=== PATIENT | female | born 1940 | race Hispanic/Latino ===

== ENCOUNTER 2019-09-08 10:15 | Inpatient (IN) | payer OTHER ==
[~2019-09-08] VITALS: Ht 157.5 cm; Wt 90.7 kg
[~2019-09-08 10:15] MED LIST: ATENOLOL25 MG PO; ATORVASTATIN PO; FLUOXETINE PO; GABAPENTIN600 MG PO; TRAZODONE PO
[2019-09-08] MEDS ORDERED: HYDRALAZINE HCL 20 MG/ML VIAL IV ONE (11:30)
[2019-09-08 12:21] LABS: BASOPHILS % 0.4 % (0.0-1.0); EOSINOPHILS % 0.6 % (0.0-6.0); HEMATOCRIT 35.9 % (34.2-44.1); HEMOGLOBIN 11.6 g/dL (12.0-16.0); LYMPHOCYTES # (AUTO) 0.8 (1.0-3.2); LYMPHOCYTES % 12.4 % (18.0-39.1); MEAN CORPUSCULAR HEMOGLOBIN 28.2 pg (28-32); MEAN CORPUSCULAR HGB CONC 32.3 g/dL (31-35); MEAN CORPUSCULAR VOLUME 87.3 fL (81-99); MONOCYTES # (AUTO) 0.7 (0.2-0.8); NEUTROPHILS # (AUTO) 5.2 (2.1-6.9); NEUTROPHILS % 76.3 % (38.7-80.0); PLATELET COUNT 374 x10e3/uL (140-360); RED BLOOD COUNT 4.11 x10e6/uL (3.6-5.1); RED CELL DISTRIBUTION WIDTH 12.1 % (11.7-14.4)
[2019-09-08 12:30] LABS: INR 0.88; PROTHROMBIN TIME 12.4 seconds (11.9-14.5)
--- NOTE | 2019-09-08 12:34 | Diagnostic Imaging Report ---
Examination: CT head without contrast Clinical Indication: Dizziness. Headaches.. Technique: Transaxial noncontrast images from the skull base through the vertex were obtained. Sagittal and coronal reformatted images were done. Dose modulation, iterative reconstruction, and/or weight based adjustment of the mA/kV was utilized to reduce the radiation dose to as low as reasonably achievable. Comparison: None. Findings: Scalp: No abnormalities. Bones: Intact. No fractures. No blastic or lytic lesions. Brain sulci: Moderate volume loss for patient's age. Ventricles: No hydrocephalus. Extra-axial space: No abnormalities. Parenchyma: There are subtle patchy areas of low-attenuation within subcortical and periventricular white matter, nonspecific, but could represent microvascular ischemic disease. No masses, hemorrhage, or acute or chronic cortical based vascular insults. Suprasellar region: No abnormalities. Craniocervical junction: The foramen magnum is patent. No Chiari one malformation. Incidental findings: Atherosclerotic calcification of the cavernous and supraclinoid internal carotid arteries. Impression: 1. No acute intracranial finding. 2. Moderate volume loss and mild chronic microvascular ischemic change. Signed by: Dr. Yojana Rebolledo M.D. on 09/08/2019 12:31 PM
[2019-09-08 12:42] LABS: ALANINE AMINOTRANSFERASE 13 IU/L (0-55); ALBUMIN 3.7 g/dL (3.5-5.0); ALBUMIN/GLOBULIN RATIO 0.9 (0.8-2.0); ALKALINE PHOSPHATASE 78 IU/L (40-150); ANION GAP 15.4 mmol/L (8-16); BLOOD UREA NITROGEN 11 mg/dL (7-26); BUN/CREATININE RATIO 14 (6-25); CALCIUM 9.3 mg/dL (8.4-10.2); CARBON DIOXIDE 26 mmol/L (22-29); CHLORIDE 91 mmol/L (98-107); CREATINE KINASE 39 IU/L (29-168); CREATININE, SERUM 0.79 mg/dL (0.57-1.11); EST GLOMERULAR FILTRATION RATE > 60 ML/MIN (60-); GLUCOSE 106 mg/dL (74-118); POTASSIUM 4.4 mmol/L (3.5-5.1); SODIUM 128 mmol/L (136-145)
--- NOTE | 2019-09-08 12:52 | Diagnostic Imaging Report ---
Chest, portable AP view History: Hypertension Comparison: No comparisons available for review IMPRESSION: The right heart border is obscured by a moderate right pleural effusion with associated right basilar atelectasis/consolidation. A trace left pleural effusion is present. There is no pneumothorax. No acute osseous abnormalities. Signed by: Tano Huber MD on 09/08/2019 12:48 PM
[2019-09-08 12:54] LABS: CREATINE KINASE MB < 1.00 ng/mL (0-4.3)
[2019-09-08 13:02] LABS: THYROID STIMULATING HORMONE 1.447 uIU/mL (0.350-4.940)
[2019-09-08] MEDS ORDERED: SODIUM CHLORIDE 0.9% 1000ML 1,000 ML IV ONE (13:45)
[2019-09-08 13:51] LABS: FREE THYROXINE INDEX 2.3572 (1.4-3.8)
[2019-09-08 14:17] LABS: BILIRUBIN,URINE NEGATIVE (NEGATIVE); CLARITY,URINE CLEAR (CLEAR); COLOR,URINE YELLOW (YELLOW); KETONES,URINE NEGATIVE (NEGATIVE); LEUKOCYTE ESTERASE ,URINE NEGATIVE (NEGATIVE); NITRITE,URINE NEGATIVE (NEGATIVE); PROTEIN,URINE DIPSTICK 2+ (NEGATIVE); URINE UROBILINOGEN 0.2 mg/dL (0.2 - 1)
--- OUTSIDE RECORDS SUMMARY | 2019-09-08 14:35 | XMS REPORT ---
Author Author [facility] Address Unknown Phone Unavailable Care Team Providers Care Grinder Set Up Operator Universal Name Role Phone Sheree RIVER Unavailable Unavailable Problems This patient has no known problems. Allergies, Adverse Reactions, Alerts This patient has no known allergies or adverse reactions. Medications This patient has no known medications. Results Test Description Test Time Test Comments Text Results Atomic Results Result Comments CHEST SINGLE (PORTABLE) 2019-09-08 12:47:00 [place] [address] Patient Name: TOYIN CARDONA MR #: [id number] : 1940 Age/Sex: 79/F Req #: [id number] Adm Physician: Ordered by: JHONNY CARR BRAKE LINING MAKER Report #: [id number] Location: ER Room/Bed: Procedure: [id number] DX/CHEST SINGLE (PORTABLE) Exam Date: Exam Time: REPORT STATUS: Signed Chest, portable AP view History: Hypertension Dennis rison: No comparisons available for review IMPRESSION: The right heart border is obscured by a moderate right pleural effusion with associated right basilar atelectasis/consolidation. A trace left pleural effusion is present. There is no pneumothorax. No acute osseous abnormalities. Signed by: Tano Stone MD on 09/08/2019 12:48 PM Dictated By: TANO STONE MD [id number] Transcribed By: PANKAJ on 09/08/191247 COPY TO: JHONNY CARR NP CT BRAIN WO 2019-09-08 12:30:00 [place] [address] Patient Name: TOYIN CARDONA MR #: [id number] : 1940 Age/Sex: 79/F Req #: [id number] Adm Physician: Ordered by: JHONNY CARR BRAKE LINING MAKER Report #: [id number] Location: ER Room/Bed: Procedure: [id number] CT/CT BRAIN WO Exam Date: Exam Time: REPORT STATUS: Signed Examination: CT head without contrast Clinical Indication: Dizziness. Hea daches.. Technique: Transaxial noncontrast images from the skull base through the vertex were obtained. Sagittal and coronal reformatted images were done. Dose modulation, iterative reconstruction, and/or weight based adjustment of the mA/kV was utilized to reduce the radiation dose to as low as reasonably achievable. Comparison: None. Findings: Scalp: No abnormalities. Bones: Intact. No fractures. No blastic or lytic lesions. Brain sulci: Moderate volume loss for patient's age. Ventricles: No hydrocephalus. Extra-axial space: No abnormalities. Parenchyma: There are subtle patchy areas of low-attenuation within subcortical and periventricular white matter, nonspecific, but could represent microvascular ischemic disease. No masses, hemorrhage, or acute or chronic cortical based vascular insults. Suprasellar region: No abnormalities. Craniocervical junction: The foramen magnum is patent. No Chiari one malformation. Incidental findings: Atherosclerotic calcification of the cavernous and supraclinoid internal carotid arteries. Impression: 1. No acute intracranial finding. 2. Moderate volume loss and mild chronic microvascular ischemic change. Signed by: Dr. Yojana Rebolledo M.D. on 09/08/2019 12:31 PM Dictated By: YOJANA BALLESTEROS MD [id number] Transcribed By: PANKAJ on 09/08/19 1231 COPY TO: JHONNY CARR NP
[2019-09-08 14:38] LABS: EPITHELIAL CELLS,URINE FEW /LPF; WBC,URINE (MAN) 0-5 /HPF (0-5)
[2019-09-08] MEDS: CEFTRIAXONE SOD 1 GM/NS 50 ML 50 ML IV SCH (15:05)
[2019-09-08] MEDS: AZITHROMYCIN 500MG/NS 250 ML 250 ML IV SCH (15:30)
--- NOTE | 2019-09-08 17:00 | NUR ---
PT CAME FROM ER AT 1730 THERE IS A STAT TO THORACENTESIS FOR RIGHT PLEURAL EFFUSION THE ER NOT CARRID OUT THE ORDER AND SHE DID NOT TELL WHILE REPORT Addendum: 09/08/19 at 1946 by Kamila Briggs RN TIME 1900
--- NOTE | 2019-09-08 17:06 | NUR ---
4th attempt report. first left on hold then hung up on then hung up on now on hold...
--- NOTE | 2019-09-08 17:30 | NUR ---
RCD PT FROM ER BY BED PT IS ALERT AND ORIENTED VITALS CHECKED PT RESTING ON BED ADMISSION ASSESSMENT AND HISTORY DONE IV PATENT ANTIBIOTICS STARTED FAMILY AT BED SIDE INSTRUCTED THE PT AND FAMILY REGARDING HOSPITAL POLICY AND ROUTINE BED LOW AND LOCKED CALL LIGHT IN REACH
[2019-09-08 17:54] VITALS: BP 183/81
[2019-09-08 17:55] VITALS: BP 181/81
--- NOTE | 2019-09-08 19:09 | NUR ---
PT RESTING ON BED BED SIDE REPORT GIVEN TO AYESHA NURSE Addendum: 09/08/19 at 1952 by Kamila Briggs RN WRONG INFORMATION REPORT GIVEN AT 1944
--- NOTE | 2019-09-08 19:15 | NUR ---
NOTIFIED THE QUALITY ASSURANCE TEST PROGRAM MANAGER REGARDING THE STAT IR CONSULT SHE TALKED TO DR CAUSEY GOT THE ORDER TO STAT CT AND TALK DR MCDUFFIE ,TALKED DR MCDUFFIE HE AGREED CHEST CT ,HE SAID HE IS COMING TO SEE THE PATIENT TO EVALUATE THE PT NEED THE THORACENTESES TODAY OR TOMORROW
--- NOTE | 2019-09-08 19:45 | NUR ---
PT RESTING ON BED BED SIDE REPORT GIVEN TO ONCOMING NURSE
[2019-09-08 20:00] VITALS: BP 193/81
--- NOTE | 2019-09-08 20:53 | Diagnostic Imaging Report ---
EXAM: CT Chest WITHOUT contrast INDICATION: Right pleural effusion COMPARISON: Chest radiograph 09/08/2019 TECHNIQUE: Chest was scanned utilizing a multidetector helical scanner from the lung apex through the level of the adrenal glands wi thout administration of IV contrast. Absence of intravenous contrast decreases sensitivity for detection of lymphadenopathy and vascular pathology. Coronal and sagittal reformations were obtained. Routine protocol was performed. IV CONTRAST: None COMPLICATIONS: None RADIATION DOSE: Total DLP: 554 mGy*cm Estimated effective dose: (DLP x 0.014 x size factor) mSv CTDIvol has been reviewed. It is below the limits set by the Radiation Protocol Committee (RPC). Dose modulation, iterative reconstruction, and/or weight based adjustment of the mA/kV was utilized to reduce the radiation dose to as low as reasonably achievable. FINDINGS: LINES/ TUBES: None. LUNGS AND AIRWAYS: Subtle interstitial thickening in the right upper lobe. Right lower lobe is collapsed, atelectasis in the right middle lobe. Airways are normal. PLEURA: Large right pleural effusion, density measures slightly greater than simple fluid. HEART AND MEDIASTINUM: The thyroid gland is normal. No mediastinal, hilar or axillary lymphadenopathy. The heart is normal in size. Small pericardial fluid. Subtle nodularity of the subpulmonic and inferior mediastinal fat. Calcifications of the aorta and major branches including the coronary arteries. UPPER ABDOMEN: Soft tissue nodularity along the omentum, primarily along the left omentum and descending colon where there is a 5.3 cm soft tissue conglomerate. Small volume ascites, measures greater than simple fluid density. A 4.8 cm right renal cyst with focal mural calcification. BONES: The visualized bony thorax is within normal limits. SOFT TISSUES: Unremarkable. IMPRESSION: 1. Abdominal findings concerning for peritoneal carcinomatosis and malignant ascites. Recommend abdominal CT with contrast for further evaluation. 2. Large right pleural effusion measures slightly greater than fluid density, with atelectasis of the right lower lung and partial atelectasis of the right middle lobe. Given the abdominal findings, the right pleural effusion may also be malignant. 3. Subtle interstitial thickening in the right upper lobe is suspected due to underaeration given large right pleural effusion. Signed by: Mario Bonner DO on 09/08/2019 8:50 PM
[2019-09-08 21:10] VITALS: BP 193/81
[2019-09-08] MEDS: HYDRALAZINE HCL 20 MG/ML VIAL IV PRN (21:10)
[2019-09-08] MEDS: ONDANSETRON HCL INJ 2MG/ML 2ML 2 MG/ML VIAL IV PRN (21:10)
--- NOTE | 2019-09-08 21:10 | NUR ---
PATIENT IS IN STABLE CONDITION, NO SIGNS OF DISTRESS NOTED. IV FLUIDS ARE RUNNING AT ORDERED RATE AND PATIENT AWARE OF NPO AFTER MIDNIGHT FOR HER PROCEDURE. BED IS IN LOW POSITION, SIDE RAILS ARE UP, CALL LIGHT WITHIN EASY REACH, WILL CONTINUE TO MONITOR.
[2019-09-08 21:20] LABS: CREATINE KINASE MB < 1.00 ng/mL (0-4.3)
[2019-09-08 21:41] LABS: CREATINE KINASE 32 IU/L (29-168)
[2019-09-09] VITALS (8 sets, daily range): BP systolic 126–179; BP diastolic 59–77
--- NOTE | 2019-09-09 04:03 | Consultation ---
DATE OF CONSULTATION: Pulmonary Consultation. REASON FOR CONSULT: Right-sided pleural effusion. HISTORY OF PRESENT ILLNESS: Ms. Witt is an 79-year-old female, presented to the emergency room with shortness of breath and pleuritic chest pain going on for last few days, progressively getting worse, it is a 6/10 in intensity in the pain on the right side along with shortness of breath. Shortness of breath was worse on exertion. The patient also reports that she felt weak and lousy. She saw Dr. Rubio and x-ray was done at that time, which was told to her it is normal in the emergency room. She had a chest x-ray, which showed right-sided pleural effusion. REVIEW OF SYSTEMS: GENERAL: Denies any fever or chills. HEAD: Denies any head trauma. ENT: Denies any earache. CARDIOVASCULAR SYSTEM: Denies any chest pain. RESPIRATORY: Shortness of breath. The rest of the review of systems are negative except as in HPI. PAST MEDICAL HISTORY: Osteoporosis and neuropathy. FAMILY AND SOCIAL HISTORY: She does not smoke. Does not drink. PHYSICAL EXAMINATION: VITAL SIGNS: T-max of 100.1, pulse of 65, blood pressure 157/69, and respiratory rate of 18. HEENT: Head atraumatic and normocephalic. NECK: Supple. CHEST: Decreased air entry on the right side. HEART: S1, S2 audible. ABDOMEN: Soft. EXTREMITIES: No pedal edema. NEUROLOGIC: Awake and alert. LABS: Chest x-ray films reviewed. Labs reviewed. ASSESSMENT AND PLAN: An 79-year-old female with right-sided pleural effusion, shortness of breath, low-grade fever, possible pneumonia with parapneumonic effusion. Agree with CT chest. We will follow the results and review the films, thoracentesis in a.m. MD ADRIENNE Brown/TANNA /[id number]
[2019-09-09 05:47] LABS: BASOPHILS % 0.3 % (0.0-1.0); EOSINOPHILS # (AUTO) 0.1 (0.0-0.4); HEMATOCRIT 30.8 % (34.2-44.1); LYMPHOCYTES % 16.2 % (18.0-39.1); MEAN CORPUSCULAR HEMOGLOBIN 28.1 pg (28-32); MEAN CORPUSCULAR HGB CONC 32.5 g/dL (31-35); MEAN CORPUSCULAR VOLUME 86.5 fL (81-99); MONOCYTES # (AUTO) 0.6 (0.2-0.8); NEUTROPHILS # (AUTO) 4.6 (2.1-6.9); NEUTROPHILS % 71.2 % (38.7-80.0); PLATELET COUNT 323 x10e3/uL (140-360); RED BLOOD COUNT 3.56 x10e6/uL (3.6-5.1); RED CELL DISTRIBUTION WIDTH 12.2 % (11.7-14.4)
[2019-09-09 06:06] LABS: ALANINE AMINOTRANSFERASE 9 IU/L (0-55); ALBUMIN 3.1 g/dL (3.5-5.0); ALKALINE PHOSPHATASE 63 IU/L (40-150); ANION GAP 10.9 mmol/L (8-16); BLOOD UREA NITROGEN 12 mg/dL (7-26); BUN/CREATININE RATIO 14 (6-25); CARBON DIOXIDE 24 mmol/L (22-29); CHLORIDE 94 mmol/L (98-107); CHOL/HDL RATIO 2.7 (3.0-3.6); CHOLESTEROL 89 MD/DL (0-199); CREATININE, SERUM 0.83 mg/dL (0.57-1.11); EST GLOMERULAR FILTRATION RATE > 60 ML/MIN (60-); GLUCOSE 103 mg/dL (74-118); HDL CHOLESTEROL 33 MG/DL (40-60); LDL CHOLESTEROL 45 MG/DL (60-130); POTASSIUM 3.9 mmol/L (3.5-5.1); SODIUM 125 mmol/L (136-145); TRIGLYCERIDES 56 MG/DL (0-149)
[2019-09-09 07:31] LABS: CREATINE KINASE 23 IU/L (29-168)
--- NOTE | 2019-09-09 09:05 | NUR ---
Patient resting in bed, denies any pain, no distress, daughter at bed side
[2019-09-09] MEDS: AZITHROMYCIN 500MG/NS 250 ML 250 ML IV SCH (09:07)
[2019-09-09 09:59] LABS: CREATINE KINASE MB < 1.00 ng/mL (0-4.3)
[2019-09-09] MEDS: HYDRALAZINE HCL 20 MG/ML VIAL IV PRN ×2 (11:57→21:04)
--- NOTE | 2019-09-09 12:23 | Diagnostic Imaging Report ---
CT of the abdomen and pelvis History: Abnormal findings on chest CT. Concern for peritoneal carcinomatosis Comparison: Chest CT dated 09/08/2019. Technique: Multidetector CT scanning of the abdomen and pelvis was performed from the level of the lung bases to the inferior pubic ramus with IV contrast. DOSE REDUCTION: The examination was performed according to departmental dose-optimization program which includes automated exposure control, adjustment of the mA and/or kV according to patient size and/or use of iterative reconstruction technique. Discussion: There is a large right pleural effusion with associated compressive atelectasis of right lower lobe. A trace left pleural effusion is present. No focal hepatic lesions are identified. The gallbladder is present nondistended. No radiopaque gallstones are identified. The spleen is within normal limits. The pancreas is homogeneous in attenuation. There is no pancreatic ductal dilatation. The bilateral adrenal glands are unremarkable. The kidneys are normal in size and enhance symmetrically. Bilateral renal cysts are noted. The largest cyst on the right arises from the mid to upper pole and measures 4.8 cm in diameter. The largest cyst on the left arises from the upper pole and measures 1.9 cm in diameter. The stomach, small, and large bowel are nondistended. There is no evidence of obstruction. There is a small amount of abdominal ascites. Multiple omental masses compatible with peritoneal carcinomatosis are identified. In the left upper quadrant there is a conglomeration of soft tissue nodularity which measures approximately 6 cm in diameter and the left lower quadrant there is an omental mass which measures approximately 13.5 cm x 3 cm. Scattered other omental masses are also identified for instance in the right paracolic gutter there is a 1.4 cm diameter mass and along the greater curvature of the stomach there is a 1.5 cm diameter mass. Within the pelvis there is an approximately 9.3 x 8.3 cm mixed cystic and solid mass which is possibly ovarian or uterine in origin. The urinary bladder is within normal limits. The abdominal aorta is of normal course and caliber. Degenerative changes of the thoracolumbar spine are identified. No acute osseous abnormalities. IMPRESSION: 1. Diffuse peritoneal/omental carcinomatosis. 2. Mixed cystic and solid pelvic mass likely uterine or ovarian in origin. 3. Large right pleural effusion. Trace left pleural effusion. 4. Small amount of abdominal ascites. Signed by: Tano Huber MD on 09/09/2019 12:20 PM
--- NOTE | 2019-09-09 14:01 | NUR ---
Patient off the unit for Thoracentesis, Notified ultrasound to send the fluid to Pathology as per Dr Yañez, lab papers sent with chart
[2019-09-09] MEDS ORDERED: IOPAMIDOL 370 MG/ML 200 ML INFUS..BTL INJ ONE (14:31)
[2019-09-09] MEDS ORDERED: SODIUM CHLORIDE 0.9% 50ML 50 ML ONE (14:31)
--- NOTE | 2019-09-09 14:42 | Diagnostic Imaging Report ---
Chest, portable AP view History: Status post right thoracentesis Comparison: 09/08/2019 IMPRESSION: There is no postprocedural pneumothorax. There has been a significant interval reduction in the amount of right pleural fluid only a small residual pleural effusion remaining. The left lung is grossly clear. The heart is within normal limits of size. No acute osseous abnormalities. Signed by: Tano Huber MD on 09/09/2019 2:39 PM
--- NOTE | 2019-09-09 14:57 | Diagnostic Imaging Report ---
Ultrasound guided right thoracentesis, 09/09/2019. Clinical History: Right pleural effusion. Modality: Ultrasound. Sedation: None. Community Planning Technician: Tano Huber MD. End Trimmer: None. Estimated Blood Loss: 1cc Specimen: 1200 cc of dark yellow fluid. Technique: Informed consent was obtained. The risks of pain, bleeding, infection, lung collapse/pneumothorax, injury to adjacent structures, and adverse medication reactions were discussed with the patient. The patient's right hemithorax was scanned from the back, with the patient in a sitting position. After the largest fluid pocket area was marked, the skin was prepped and draped in the usual sterile manner. The area was anesthetized with 1% lidocaine, a 5 F one-step catheter was advanced into the pleural space under ultrasound guidance. After completion of drainage, the catheter was removed. There was no evidence of immediate complication. Post procedure chest x-ray demonstrates no evidence of pneumothorax. Impression: Successful and uncomplicated ultrasound guided right thoracentesis. Signed by: Tano Huber MD on 09/09/2019 2:54 PM
[2019-09-09 17:14] LABS: LYMPHOCYTES,BODY FLUID 78 %; MONO/MACROPHG,BODY FLUID 11 %
[2019-09-09 17:15] LABS: OTHER CELLS,BODY FLUID 11 %
--- NOTE | 2019-09-09 17:18 | History and Physical ---
PRIMARY CARE PHYSICIAN: Dr. Chester Rubio. ASSISTED LIVING DIRECTOR: Dr. Marialuisa Yañez. CHIEF COMPLAINT: Increasing shortness of breath, generalized weakness, finding of low potassium and pleural effusion with possible pneumonia in the emergency room. HISTORY OF PRESENT ILLNESS: The patient is an 79-year-old female complained of increasing weakness. The patient also complained of increase in shortness of breath when she ambulates. In the emergency room, the patient found to have right pleural effusion. She also has a possible malignancy in the abdomen. The patient is admitted for further evaluation. PAST MEDICAL HISTORY: Hypertension, dyslipidemia, depression, and anxiety disorder. PAST SURGICAL HISTORY: Partial hysterectomy. SOCIAL HISTORY: The patient does not smoke or use alcohol. No regular drug use. ALLERGIES: NO KNOWN ALLERGIES. HOME MEDICATIONS: Atenolol, gabapentin, Lipitor, Prozac, and trazodone. PHYSICAL EXAMINATION: VITAL SIGNS: Temperature is 98, blood pressure 152/68, pulse rate 71, and respirations 18. GENERAL: The patient seems weak, but is not in any distress. HEENT: Normocephalic and atraumatic. Anicteric. NECK: Supple grossly. PULMONARY: Diminished breath sounds bilaterally, worse on the right compared to left. CARDIOVASCULAR: Regular rate and rhythm. ABDOMEN: Soft, nontender, non-distention. EXTREMITIES: No cyanosis or edema. NEUROLOGIC: No focal deficit. LABORATORY DATA: WBC is 6.8, hemoglobin 11.6, hematocrit 36, and platelet is 374. Coagulation is normal. Chemistry; sodium 125, potassium 3.9, chloride 94, bicarb 24, BUN 12, creatinine 0.8, and glucose is 103. Urinalysis unremarkable. Serology influenza A and B negative. IMAGING TESTS: The patient had a CT of the chest done. The patient had abdominal findings concerning for peritoneal carcinomatosis and malignant ascites. Recommendation of abdominal CT with contrast. She had a large right pleural effusion, slightly greater than fluid density. There is atelectasis as well. IMPRESSION: 1. Right pleural effusion. 2. Abdominal ascites with possible carcinomatosis. PLAN: Abdominal and pelvic CT with contrast. Continue with right pleural effusion thoracentesis. We will consult the patient with Dr. Mulugeta Hall. The patient has been seen by Dr. Marialuisa Yañez already. We will watch the patient workup and pending on further evaluation of findings. MD SANDER Quinn /[id number]
[2019-09-09 17:25] LABS: RBC,BODY FLUID 536 cells/uL; WBC,BODY FLUID 184 cells/uL
[2019-09-09 17:26] LABS: BODY FLUID APPEARANCE SL.CLOUDY; BODY FLUID COLOR STRAW; BODY FLUID TYPE PLEURAL
[2019-09-09] MEDS: CEFTRIAXONE SOD 1 GM/NS 50 ML 50 ML IV SCH (17:33)
[2019-09-09] MEDS: ONDANSETRON HCL INJ 2MG/ML 2ML 2 MG/ML VIAL IV PRN (17:51)
--- NOTE | 2019-09-09 19:05 | NUR ---
Received report from day nurse. patient is resting comfortably in the bed. bed is in the lowest position and call calix is within reach. will continue to monitor patient.
[2019-09-10] VITALS (9 sets, daily range): BP systolic 135–174; BP diastolic 59–79
--- NOTE | 2019-09-10 00:15 | NUR ---
Received report from Vinicius CAPONE, will continue to monitor patient
--- NOTE | 2019-09-10 03:31 | Consultation ---
DATE OF CONSULTATION: 09/09/2019 GI Consult Note. REFERRING PHYSICIAN: Gigi Rahman MD. PRIMARY CARE PHYSICIAN: Chester Rubio MD. REASON FOR CONSULT: Malignant ascites, peritoneal carcinomatosis. HISTORY OF PRESENTING ILLNESS: An 79-year-old very pleasant female, who got admitted with worsening of shortness of breath and progressive abdominal distention for the last couple of weeks. She was also noted to be quite lightheaded at home. She checked her blood pressure, it was elevated. She decided to come to the emergency room. Here, her blood pressure was 173/77, subsequently it came down to 132/60. Denies any associated chest pain or palpitation. CT chest initially showed right pleural effusion and partial abdominal section of the CT chest was suggestive of possible peritoneal carcinomatosis. Subsequently, she has had a CT of the abdomen and pelvis with contrast with IV contrast. This showed diffuse peritoneal/omental carcinomatosis and mixed cystic and solid pelvic mass likely originating from ovarian or uterus. On further questioning, she stated that she has had a colonoscopy three years ago somewhere in [place]. The patient does not remember the finding. However, she states that no polyp or any mass was found. The patient denies any GI symptoms except that she has a chronic constipation. REVIEW OF SYSTEMS: Twelve point system reviewed, symptomatology is limited as per HPI. PAST MEDICAL HISTORY: Hypertension, dyslipidemia, depression, anxiety. PAST SURGICAL HISTORY: Partial hysterectomy. FAMILY HISTORY: Negative for any GI or SPED TEACHER malignancies. SOCIAL HISTORY: No smoking, alcohol, or any illicit drug use. ALLERGIES: NONE. HOME MEDICATION: Atenolol, gabapentin, atorvastatin, fluoxetine, trazodone. INPATIENT MEDICATIONS: Reviewed as per MAR, she is on intravenous ceftriaxone, azithromycin, hydralazine, and Zofran. PHYSICAL EXAMINATION: VITAL SIGNS: Temperature 99.3, pulse 76, respiration 18, blood pressure 179/77 to 132/60, oxygen saturation 97% on room air. GENERAL: Not in any acute distress. HEENT: Oral mucosa is moist. Gross pallor, anicteric sclerae. CVS: S1, S2 regular. LUNGS: Decreased breath sounds at the right side, left lung is relatively clear. No rales or rhonchi. ABDOMEN: Distended lower quadrant tenderness on deep palpation without rebound, rigidity, or guarding. No digitally palpable mass or any hernia. Bowel sounds present. EXTREMITIES: Warm, trace bilateral leg edema. LABORATORY DATA: WBC 6.42, hemoglobin down to 10.0 from 11.6, hematocrit 30.8, MCV 86.5, and platelet count 323. Sodium 125, potassium 3.9, chloride 94, bicarb 24, BUN 12, creatinine 0.83, glucose 103. Liver enzymes showed a total bilirubin 0.4, AST 25, ALT 9, and alkaline phosphatase 63. Liver enzymes showed albumin 3.1, AST 25, ALT 9, total bilirubin 0.4, and CT of the abdomen and pelvis with IV contrast showed. 1. Diffuse peritoneal/omental carcinomatosis. 2. Mixed cystic and solid pelvic mass, likely uterine or ovarian in origin. 3. Large right pleural effusion. Trace left pleural effusion. 4. Small amount of abdominal ascites. IMPRESSION: Peritoneal carcinomatosis likely due to underlying ovarian cancer. Pleural effusion also seems to be malignant. PLAN: I do not suspect any colonic mass given absence of any GI symptoms. The patient is not even significantly anemic. She has a chronic constipation. She is not having any acute constipation. Oncology consult. Bowel regimen for constipation. Correct hyponatremia. I thank Dr. Rahman for allowing me to participate in the care of this patient. John Betancourt MD SA/TANNA /[id number]
[2019-09-10 05:42] LABS: BASOPHILS % 0.5 % (0.0-1.0); EOSINOPHILS # (AUTO) 0.1 (0.0-0.4); EOSINOPHILS % 2.2 % (0.0-6.0); HEMATOCRIT 31.2 % (34.2-44.1); HEMOGLOBIN 10.1 g/dL (12.0-16.0); LYMPHOCYTES # (AUTO) 0.9 (1.0-3.2); LYMPHOCYTES % 14.1 % (18.0-39.1); MEAN CORPUSCULAR HEMOGLOBIN 28.1 pg (28-32); MEAN CORPUSCULAR HGB CONC 32.4 g/dL (31-35); MEAN CORPUSCULAR VOLUME 86.9 fL (81-99); MONOCYTES # (AUTO) 0.7 (0.2-0.8); MONOCYTES % 11.2 % (4.4-11.3); NEUTROPHILS # (AUTO) 4.5 (2.1-6.9); NEUTROPHILS % 71.7 % (38.7-80.0); PLATELET COUNT 362 x10e3/uL (140-360); RED BLOOD COUNT 3.59 x10e6/uL (3.6-5.1); RED CELL DISTRIBUTION WIDTH 12.5 % (11.7-14.4)
[2019-09-10 05:57] LABS: BLOOD UREA NITROGEN 12 mg/dL (7-26); BUN/CREATININE RATIO 14 (6-25); CARBON DIOXIDE 23 mmol/L (22-29); CHLORIDE 94 mmol/L (98-107); CREATININE, SERUM 0.88 mg/dL (0.57-1.11); EST GLOMERULAR FILTRATION RATE > 60 ML/MIN (60-); GLUCOSE 109 mg/dL (74-118); SODIUM 127 mmol/L (136-145)
[2019-09-10 06:38] LABS: FERRITIN 295.74 ng/mL (4.63-204.00)
[2019-09-10] MEDS: AZITHROMYCIN 500MG/NS 250 ML 250 ML IV SCH (10:32)
[2019-09-10] MEDS ORDERED: SODIUM CHLORIDE 0.9% 250ML 250 ML ONE (10:38)
[2019-09-10] MEDS: CEFTRIAXONE SOD 1 GM/NS 50 ML 50 ML IV SCH (15:51)
[2019-09-10] MEDS ORDERED: GABAPENTIN 300 MG CAP PO ONE (20:00)
[2019-09-10] MEDS: ATORVASTATIN 20 MG TAB PO SCH (20:29)
[2019-09-10] MEDS: POLYETHYLENE GLYCOL 3350 17 GM PACK PO PRN (20:29)
[2019-09-10] MEDS ORDERED: TRAZODONE HCL 50 MG TAB PO SCH (21:00)
[2019-09-11] VITALS (8 sets, daily range): BP systolic 137–180; BP diastolic 63–77
[2019-09-11] MEDS: ATENOLOL 50 MG TAB PO SCH (08:17)
[2019-09-11] MEDS: AZITHROMYCIN 500MG/NS 250 ML 250 ML IV SCH (08:17)
[2019-09-11] MEDS: FLUOXETINE HCL 20 MG CAP PO SCH (08:17)
[2019-09-11] MEDS ORDERED: GABAPENTIN 300 MG CAP PO SCH (09:00)
[2019-09-11] MEDS ORDERED: NIFEDIPINE CR 30 MG TAB PO ONE (11:00)
[2019-09-11] MEDS: POLYETHYLENE GLYCOL 3350 17 GM PACK PO PRN (12:26)
[2019-09-11] MEDS: GABAPENTIN 100 MG CAP PO SCH ×2 (15:53→21:00)
[2019-09-11] MEDS: CEFTRIAXONE SOD 1 GM/NS 50 ML 50 ML IV SCH (15:53)
[2019-09-11] MEDS: DOXYCYCLINE HYCLATE TABLET 100 MG TAB PO SCH (16:30)
[2019-09-11] MEDS: HYDRALAZINE HCL 20 MG/ML VIAL IV PRN (16:30)
[2019-09-11] MEDS ORDERED: CITRATE OF MAGNESIA 300ML BOTTLE PO ONE (18:45)
--- NOTE | 2019-09-11 18:55 | NUR ---
Dr. Hall ordered Mag Cit, Pt no BM x3 days. IR consult for biopsy to omental mass.
--- NOTE | 2019-09-11 19:05 | NUR ---
Bedside rounds completed with morning nurse. Pt alert and orient to name, lying in bed HOB 45 degrees. Denies pain at this time. Family at bedside. Call light within reach. Will continue to monitor.
--- NOTE | 2019-09-11 20:45 | NUR ---
Dr. Betancourt ordered senna 2 tabs at HS tomorrow and Miralax 17gm in AM.
[2019-09-11] MEDS: ATORVASTATIN 20 MG TAB PO SCH (21:00)
[2019-09-11] MEDS: QUETIAPINE FUMARATE 25 MG TAB PO SCH (21:00)
[2019-09-11] MEDS: AMLODIPINE BESYLATE 5 MG TAB PO SCH (21:00)
--- NOTE | 2019-09-11 23:55 | Progress Note ---
DATE: 09/11/2019 SUBJECTIVE: The patient reports no abdominal pain. Tolerating oral diet. Has not had any bowel movement today. She is complaining of some constipation. REVIEW OF SYSTEMS: GENERAL: No fever or chills. CVS: No chest pain or palpitations. RESPIRATORY: No cough or expectoration. MEDICATIONS: Doxycycline 100 mg twice daily, hydralazine 10 mg q.4 hours as needed, gabapentin 200 mg three times daily, ceftriaxone 1 mg daily, MiraLAX 17 g daily as needed, fluoxetine 20 mg daily, atenolol 50 mg daily, atorvastatin 20 mg daily, Zofran 4 mg IV q.4 hours as needed, amlodipine 5 mg daily, nifedipine 30 mg daily, Seroquel 25 mg at bedtime. PHYSICAL EXAMINATION: VITAL SIGNS: Temperature 96.5, pulse 76, respirations 16, blood pressure ranging from 165/74 to 180/77, and oxygen saturation 97% on room air. GENERAL: Not in any acute distress. HEENT: Oral mucosa is moist. Anicteric sclerae. ABDOMEN: Distended. Mild lower quadrant tenderness on deep palpation. Shifting dullness present. Bowel sounds present. No other palpable mass or hernia. LABORATORY DATA: WBC 6.24, hemoglobin 10.1, hematocrit 31.2, MCV 86.9, platelet count 362. Sodium 127, potassium 4.0, chloride 94, bicarb 23, BUN 12, creatinine 0.88. Iron profile showed serum iron 25, TIBC 217, iron saturation 12, transferrin 155, and ferritin 295.74. IMPRESSION: Peritoneal carcinomatosis from large ovarian/uterine mass. Malignant pleural effusion. Oncology consult pending. Daily bowel regimen for constipation. Correct hyponatremia. John Betancourt MD SA/TANNA /[id number]
[2019-09-12] VITALS (7 sets, daily range): BP systolic 108–145; BP diastolic 49–84
[2019-09-12 05:23] LABS: BASOPHILS % 0.4 % (0.0-1.0); EOSINOPHILS # (AUTO) 0.2 (0.0-0.4); EOSINOPHILS % 3.7 % (0.0-6.0); HEMATOCRIT 29.9 % (34.2-44.1); LYMPHOCYTES # (AUTO) 1.1 (1.0-3.2); LYMPHOCYTES % 21.8 % (18.0-39.1); MEAN CORPUSCULAR HEMOGLOBIN 29.2 pg (28-32); MEAN CORPUSCULAR HGB CONC 33.4 g/dL (31-35); MEAN CORPUSCULAR VOLUME 87.2 fL (81-99); MONOCYTES # (AUTO) 0.6 (0.2-0.8); MONOCYTES % 12.6 % (4.4-11.3); NEUTROPHILS # (AUTO) 3.1 (2.1-6.9); NEUTROPHILS % 61.1 % (38.7-80.0); PLATELET COUNT 309 x10e3/uL (140-360); RED BLOOD COUNT 3.43 x10e6/uL (3.6-5.1); RED CELL DISTRIBUTION WIDTH 12.6 % (11.7-14.4)
[2019-09-12] MEDS: NIFEDIPINE CR 30 MG TAB PO SCH (05:36)
[2019-09-12 05:39] LABS: INR 0.94; PROTHROMBIN TIME 13.1 seconds (11.9-14.5)
[2019-09-12 05:40] LABS: PARTIAL THROMBOPLASTIN TIME 32.1 seconds (23.8-35.5)
[2019-09-12 05:46] LABS: ANION GAP 13.1 mmol/L (8-16); BLOOD UREA NITROGEN 12 mg/dL (7-26); BUN/CREATININE RATIO 17 (6-25); CALCIUM 7.9 mg/dL (8.4-10.2); CARBON DIOXIDE 23 mmol/L (22-29); CHLORIDE 96 mmol/L (98-107); EST GLOMERULAR FILTRATION RATE > 60 ML/MIN (60-); GLUCOSE 103 mg/dL (74-118); POTASSIUM 4.1 mmol/L (3.5-5.1); SODIUM 128 mmol/L (136-145)
--- NOTE | 2019-09-12 06:45 | NUR ---
Bedside rounds completed with morning nurse. Pt resting in bed. No acute distress noted.
--- NOTE | 2019-09-12 07:00 | NUR ---
BEDSIDE SHIFT REPORT RECEIVED FROM THE DERRICK BOAT RUNNER RN. EDUCATED PT ABOUT FALL PRECAUTIONS. CALL LIGHT WITH IN EASY REACH. INSTRUCTED PT TO USE CALL LIGHT FOR ALL THE NEEDS. PT VERBALIZED UNDERSTANDING. BED IS LOW AND LOCKED. SIDE RAILS X2. BED ALARM IS ON. PT DENIES NEEDS AT THIS TIME.
[2019-09-12] MEDS: POLYETHYLENE GLYCOL 3350 17 GM PACK PO SCH (09:00)
--- NOTE | 2019-09-12 09:15 | NUR ---
CALL RECEIVED FROM RADIOLOGY TO RESCHEDULE THE PROCEDURE FOR TOMORROW. INFORMED THE SAME TO DR. TANNER AND DR. CAUSEY. START GOLYTE TODAY PER DR. CAUSEY.
[2019-09-12] MEDS: ATENOLOL 50 MG TAB PO SCH (10:00)
[2019-09-12] MEDS: AMLODIPINE BESYLATE 5 MG TAB PO SCH (10:00)
[2019-09-12] MEDS: GABAPENTIN 100 MG CAP PO SCH ×3 (10:00→20:58)
[2019-09-12] MEDS: DOXYCYCLINE HYCLATE TABLET 100 MG TAB PO SCH ×2 (10:00→17:35)
[2019-09-12] MEDS: FLUOXETINE HCL 20 MG CAP PO SCH (10:00)
[2019-09-12] MEDS ORDERED: PEG (High)/E-LYTE SOLN 4,000 ML BTL PO NR (10:15)
--- NOTE | 2019-09-12 10:59 | NUR ---
PT HAD A LARGE BM. DIARRHEA. PT AND DAUGHTER AT BEDSIDE REFUSED MIRALAX AND GOLYTE
[2019-09-12] MEDS: CEFTRIAXONE SOD 1 GM/NS 50 ML 50 ML IV SCH (14:21)
[2019-09-12] MEDS: POLYSACCARIDE IRON COMPLEX 150 MG CAP PO SCH (17:35)
--- NOTE | 2019-09-12 19:00 | NUR ---
BEDSIDE SHIFT REPORT GIVEN TO THE REHABILITATION TECHNICIAN RN. PT DENIED FURTHER NEEDS.
--- NOTE | 2019-09-12 20:00 | NUR ---
ROUNDS WERE MADE WITH AM NURSE, PATIENT RESTING IN BED, NO DISTRESS NOTED. CALL LIGHT REMAIN IN REACH.
[2019-09-12] MEDS: SENNA-S TABLET PO SCH (20:58)
[2019-09-12] MEDS: ATORVASTATIN 20 MG TAB PO SCH (20:58)
[2019-09-12] MEDS: QUETIAPINE FUMARATE 25 MG TAB PO SCH (20:58)
[2019-09-13] VITALS (9 sets, daily range): BP systolic 121–151; BP diastolic 52–78
--- NOTE | 2019-09-13 | NUR ---
REMAIN ASLEEP, NPO FOR PROCEDURE.
--- NOTE | 2019-09-13 04:00 | NUR ---
CONTINUE RESTING, NO COMPLAINTS OF PAIN, CALL LIGHT REMAIN IN REACH. REMAIN ON TELEMETRY.
[2019-09-13 05:28] LABS: BASOPHILS % 0.5 % (0.0-1.0); EOSINOPHILS # (AUTO) 0.3 (0.0-0.4); EOSINOPHILS % 4.4 % (0.0-6.0); HEMATOCRIT 31.7 % (34.2-44.1); HEMOGLOBIN 10.3 g/dL (12.0-16.0); LYMPHOCYTES # (AUTO) 1.4 (1.0-3.2); LYMPHOCYTES % 24.7 % (18.0-39.1); MEAN CORPUSCULAR HEMOGLOBIN 28.4 pg (28-32); MEAN CORPUSCULAR HGB CONC 32.5 g/dL (31-35); MEAN CORPUSCULAR VOLUME 87.3 fL (81-99); MONOCYTES # (AUTO) 0.7 (0.2-0.8); MONOCYTES % 12.4 % (4.4-11.3); NEUTROPHILS # (AUTO) 3.3 (2.1-6.9); NEUTROPHILS % 57.6 % (38.7-80.0); PLATELET COUNT 365 x10e3/uL (140-360); RED BLOOD COUNT 3.63 x10e6/uL (3.6-5.1); RED CELL DISTRIBUTION WIDTH 12.5 % (11.7-14.4)
[2019-09-13 05:44] LABS: ANION GAP 13.5 mmol/L (8-16); BLOOD UREA NITROGEN 16 mg/dL (7-26); BUN/CREATININE RATIO 21 (6-25); CALCIUM 8.3 mg/dL (8.4-10.2); CARBON DIOXIDE 25 mmol/L (22-29); CHLORIDE 97 mmol/L (98-107); CREATININE, SERUM 0.76 mg/dL (0.57-1.11); EST GLOMERULAR FILTRATION RATE > 60 ML/MIN (60-); GLUCOSE 98 mg/dL (74-118); POTASSIUM 4.5 mmol/L (3.5-5.1); SODIUM 131 mmol/L (136-145)
[2019-09-13] MEDS: NIFEDIPINE CR 30 MG TAB PO SCH (05:59)
--- NOTE | 2019-09-13 07:00 | NUR ---
BEDSIDE SHIFT REPORT RECEIVED FROM THE YARD MOTOR OPERATOR RN. EDUCATED PT ABOUT FALL PRECAUTIONS. CALL LIGHT WITH IN EASY REACH. INSTRUCTED PT TO USE CALL LIGHT FOR ALL THE NEEDS. PT VERBALIZED UNDERSTANDING. BED IS LOW AND LOCKED. SIDE RAILS X2. BED ALARM IS ON. PT DENIES NEEDS AT THIS TIME.
--- NOTE | 2019-09-13 07:01 | NUR ---
REPORT GIVEN TO ONCOMING NURSE.
[2019-09-13] MEDS: GABAPENTIN 100 MG CAP PO SCH ×3 (09:00→20:25)
[2019-09-13] MEDS: POLYSACCARIDE IRON COMPLEX 150 MG CAP PO SCH ×2 (09:00→16:56)
[2019-09-13] MEDS: DOXYCYCLINE HYCLATE TABLET 100 MG TAB PO SCH ×2 (09:00→16:56)
--- NOTE | 2019-09-13 10:45 | NUR ---
PT OFF UNIT FOR PROCEDURE IN SAFE CONDITION.
[2019-09-13] MEDS ORDERED: LIDOCAINE HCL 1% LOCAL INJ 20 ML VIAL ONE (11:02)
[2019-09-13] MEDS ORDERED: FENTANYL CITRATE/PF 100MCG/2 ML INJ ONE (11:12)
[2019-09-13] MEDS ORDERED: MIDAZOLAM HCL 2 MG/2 ML VIAL ONE (11:12)
--- NOTE | 2019-09-13 13:00 | NUR ---
PT BACK TO UNIT AFTER PROCEDURE. DENIES NEEDS AT THIS TIME. FAMILY AT BEDSIDE.
[2019-09-13] MEDS: POLYETHYLENE GLYCOL 3350 17 GM PACK PO SCH (13:24)
[2019-09-13] MEDS: FLUOXETINE HCL 20 MG CAP PO SCH (13:24)
[2019-09-13] MEDS: ATENOLOL 50 MG TAB PO SCH (13:24)
[2019-09-13] MEDS: AMLODIPINE BESYLATE 5 MG TAB PO SCH (13:24)
[2019-09-13] MEDS: CEFTRIAXONE SOD 1 GM/NS 50 ML 50 ML IV SCH (13:25)
--- NOTE | 2019-09-13 13:57 | Diagnostic Imaging Report ---
CT guided peritoneal mass biopsy History: Perineal carcinomatosis Technique: Serial axial imaging was performed without intravenous contrast as per departmental protocol. Multiplanar images are reconstructed and reviewed when indicated. This CT examination is performed using one or more of the following dose reduction techniques: Automated exposure control, adjustment of the mA and /or kV according to patient size, and/or use of iterative reconstruction technique. Technique/findings: Written informed consent was obtained after discussing risks, benefits, and alternatives of the procedure with the patient. Patent was brought to the CT scanner and placed in supine position. Pre-procedure CT scan demonstrates peritoneal implants. A peritoneal/omental mass within the left upper quadrant was targeted for biopsy. The left upper quadrant was prepped and draped in sterile fashion. 1% lidocaine was used for local anesthesia. Using CT guidance, a 19-gauge introducer needle was advanced into the left peritoneal lesion. A 20-gauge core biopsy was used to obtain 3 core biopsy samples. Adequacy was confirmed by the cytopathology department. The introducer needle was removed and hemostasis achieved with manual compression. A sterile dressing was applied. Post biopsy images demonstrate no evidence of hemorrhage or other complication. The patient tolerated the procedure without immediate consultation. Impression: Technically successful CT guided biopsy of left peritoneal/omental lesion. Signed by: Dr. Aamir Turner MD on 09/13/2019 1:54 PM
--- NOTE | 2019-09-13 19:00 | NUR ---
BEDSIDE SHIFT REPORT GIVEN TO THE COMPENSATION ADJUSTER RN. PT DENIED FURTHER NEEDS.
[2019-09-13] MEDS: QUETIAPINE FUMARATE 25 MG TAB PO SCH (20:25)
[2019-09-13] MEDS: ATORVASTATIN 20 MG TAB PO SCH (20:25)
[2019-09-13] MEDS: SENNA-S TABLET PO SCH (20:25)
--- NOTE | 2019-09-13 20:25 | NUR ---
PATIENT RESTING IN BED COMFORTABLY, NO SIGNS OF DISTRESS NOTED. GRANDSON IS PRESENT AT BEDSIDE AND PATIENT VOICES NO PAIN AT THIS TIME. BED IS IN LOWEST POSITION POSSIBLE, BOTH SIDE RAILS ARE UP, CALL LIGHT IS WITH EASY REACH, WILL CONTINUE TO MONITOR.
[2019-09-14 04:00] VITALS: BP 157/70
[2019-09-14] MEDS: NIFEDIPINE CR 30 MG TAB PO SCH (06:06)
--- NOTE | 2019-09-14 06:08 | NUR ---
RADIOLOGY HAS COME TO PICKUP THE PATIENT FOR X-RAY.
--- NOTE | 2019-09-14 06:30 | NUR ---
PATIENT RETURNED FROM RADIOLOGY.
--- NOTE | 2019-09-14 06:53 | Diagnostic Imaging Report ---
EXAMINATION: CHEST 2 VIEWS INDICATION: Pleural effusion COMPARISON: Chest radiograph 09/09/2019, chest CT 09/08/2019 FINDINGS: TUBES and LINES: None. LUNGS/FOR: Persistent small right pleural effusion and right basilar atelectasis. Left lung well aerated. The pleural effusion is decreased compared to chest CT on 09/08/2019. HEART AND MEDIASTINUM: The cardiomediastinal silhouette is nonenlarged. Aortic calcifications.. BONES AND SOFT TISSUES: No acute osseous lesion. Soft tissues are unremarkable. UPPER ABDOMEN: No free air under the diaphragm. IMPRESSION: Persistent small right pleural effusion and right basilar atelectasis. The pleural effusion is decreased compared to chest CT on 09/08/2019. Signed by: Mario Bonner DO on 09/14/2019 6:50 AM
[2019-09-14] MEDS: ATENOLOL 50 MG TAB PO SCH (08:37)
[2019-09-14] MEDS: FLUOXETINE HCL 20 MG CAP PO SCH (08:37)
[2019-09-14] MEDS: POLYSACCARIDE IRON COMPLEX 150 MG CAP PO SCH (08:37)
[2019-09-14] MEDS: GABAPENTIN 100 MG CAP PO SCH (08:37)
[2019-09-14] MEDS: DOXYCYCLINE HYCLATE TABLET 100 MG TAB PO SCH (08:37)
[2019-09-14] MEDS: AMLODIPINE BESYLATE 5 MG TAB PO SCH (08:37)
[2019-09-14] MEDS: POLYETHYLENE GLYCOL 3350 17 GM PACK PO SCH (08:37)
[2019-09-14 08:55] VITALS: BP 147/62
--- NOTE | 2019-09-14 09:10 | NUR ---
IMM letter delivered and explained to pt and family at bedside. They verbalized understanding. Pt stated she was ready to discharge home. Signed copy placed in chart. Copy to family at bedside. CM business card left for any questions/concerns.
--- NOTE | 2019-09-14 09:45 | NUR ---
The pt. was discharged home post removal of iv and provision of scripts and follow up instructions. The pt. was escorted to private car via w/c and placed into the care of family.
--- NOTE | 2019-09-15 07:22 | Discharge Summary ---
CONSULTANTS: 1. Dr. Mulugeta Hall. 2. Dr. Jarocho Cunningham. 3. Dr. John Betancourt. PRIMARY CARE PHYSICIAN: Dr. Chester Rubio. FINAL DIAGNOSES: 1. Status post omental mass biopsy for possibility of malignancy, carcinomatosis. 2. 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 3. Large right pleural effusion status post thoracentesis, therapeutic and pathology was sent. 4. Small amount of abdominal ascites. 5. Constipation. 6. Hypertension. HISTORY OF PRESENT ILLNESS: The patient is an 79-year-old female came to the hospital with low sodium level and pleural effusion on the right and with generalized weakness. There was no fever. There was no sign of infection. However, because of the lower large pleural effusion on x-ray, the patient has imaging tests done. I found that the patient has extensive finding as above. Her CA-125 was 1158. CEA is 1.2 and CA 19-9 is 5. Biopsy of the omental mass is done on September 13, 2019. No complication of the biopsy. The patient is now stable. She will be discharged home. Follow up with Dr. Mulugeta Hall for pathology report and possible treatment. Discussed with the patient's primary care physician, Dr. Chester Rubio. The patient will be discharged home today. Blood pressure medication adjustment was given. The patient will follow up as planned. MD JULITA Quinn/ANTHONYL /[id number]
== END 2019-09-14 09:50 | disposition home or self-care (01) | DRG 375 ==
LOC: ER 10:15 → ERHOLD 14:32 → MED/SURG2 17:46
PROVIDERS: ADMIT Internal Medicine; ATTEND Internal Medicine
PROC: 0W993ZZ Drainage of Right Pleural Cavity, Percutaneous Approach (ICD-10-PCS; 2019-09-09)
PROC: 0DBU3ZX Excision of Omentum, Percutaneous Approach, Diagnostic (ICD-10-PCS; principal; 2019-09-13)
DX: C78.6 Secondary malignant neoplasm of retroperitoneum and peritoneum (principal); J90 Pleural effusion, not elsewhere classified; E87.1 Hypo-osmolality and hyponatremia; R18.8 Other ascites; R18.0 Malignant ascites; C55 Malignant neoplasm of uterus, part unspecified; I10 Essential (primary) hypertension; C80.1 Malignant (primary) neoplasm, unspecified; E87.6 Hypokalemia; G62.9 Polyneuropathy, unspecified; E78.5 Hyperlipidemia, unspecified; G47.00 Insomnia, unspecified; K59.00 Constipation, unspecified
CPT/HCPCS: 32555; 36415; 49180; 70450; 71045; 71046; 71250; 74177; 74470; 77012; 80048; 80053; 80061; 81001; 82378; 82550; 82553; 82607; 82728; 83540; 83615; 83880; 84157; 84436; 84443; 84466; 84479; 84484; 85025; 85610; 85730; 86301; 86304; 87040; 87070; 87086; 87205; 87400; 88112; 88305; 88342; 89051; 93005; 93306; 99284; J0360; J0456; J0696; J2001; J2250; J2405; J3010; J7030; J7050; Q9967